=== PATIENT | male | born 2000 | race Caucasian/White ===

== ENCOUNTER 2024-04-19 09:47 | Day surgery (SDC) | payer OTHER, SELFPAY ==
[2024-04-14 15:09] VITALS: BMI 20.7
[2024-04-19 11:03] VITALS: BP 156/89; PULSE 56; RESP 18; TEMP 36.7; O2SAT 99; BMI 20.7
[2024-04-19] MEDS: ACETAMINOPHEN 325 MG TABLET 975 MG PO (11:21)
--- NOTE | 2024-04-19 13:13 | PM.PREOP ---
Pre-operative Note Interval Note History & Physical reviewed/Exam performed by Physician: Yes Changes to H&P: No H&P completed within 30 days and has changed as indicated here:: 23-year-old male presents with a perianal abscess. When previously examined there was some concerning had a pilonidal cyst but this is not the case it has actually a perianal abscess. We will plan for exam under anesthesia today with possible incision and drainage and possible fistulotomy. Overview of the procedure to risks benefits and alternatives reviewed. Questions have been answered he is in agreement with this plan.
--- NOTE | 2024-04-19 13:35 | SUR.OPER ---
Lithotomy on padded OR bed, head on pillow, arms secured on padded arm boards at <90 degrees abduction. Legs secured in padded yellow fins stirrups.
[2024-04-19] MEDS: BUPIVACAINE 0.25% (PF) VIAL 30 ML INJ (13:42)
[2024-04-19 13:55] VITALS: BP 105/59; PULSE 70; RESP 12; TEMP 36.8; O2SAT 95
[2024-04-19 14:00] VITALS: BP 104/60; PULSE 71; RESP 12; TEMP 36.8; O2SAT 95
[2024-04-19 14:05] VITALS: BP 107/63; PULSE 76; RESP 12; TEMP 36.8; O2SAT 95
[2024-04-19 14:12] VITALS: BP 108/63; PULSE 75; RESP 15; TEMP 36.9; O2SAT 96
--- NOTE | 2024-04-21 19:22 | PM.OP.1 ---
Operative Date/Time/Diagnoses Date of procedure: 04/19/24 Time of procedure: 19:22 Pre-op diagnosis: perianal abscess Post-op diagnosis: other (superficial perianal fistula) Procedure & Clinicians Procedure: Rectal examination under anesthesia Incision and drainage of perianal abscess Fistulotomy Same procedure as scheduled: Yes Indications: 23M with rectal peacock and abscess Surgeon: Clayton Harmon Click Yes if Unassisted: Yes Anesthesia Type: General Operative Notes Findings: perianal abscess in posterior midline with superficial fistula Specimen(s): none sent Estimated Blood Loss (mL): 5 Procedure in detail: Patient was brought to the operating room placed supine on the table. Bilateral lower extremity compression devices were applied. General anesthesia was induced he was intubated with a LMA. He was then placed into lithotomy position appropriately padded prepped and draped in usual fashion. Time-out was performed. General inspection of the rectum was made there was a 1 -2 cm perianal abscess in the posterior midline. Internal examination of the rectum was notable for a superficial fistulous tract also within the posterior midline. This was identified using a lacrimal probe. Given the superficial nature of the fistula after we made an incision and drainage of the anal abscess the fistula tract was opened using electrocautery and curetted. There were no other abnormalities. The sponge and instrument count was correct x2. He tolerated the procedure well was extubated and transferred to recovery in stable condition. Complications: none Post-operative Condition: stable Disposition: same day surgery
== END 2024-04-19 14:40 | disposition home or self-care (01) ==
PROVIDERS: Referring Provider Surgery; Visit Provider Surgery
PROC: (CPT 45990; principal; 2024-04-19 11:45)
PROC: (CPT 46050; 2024-04-19 11:45)
DX: K61.0 Anal abscess (principal)
CPT/HCPCS: 46050; J1100; J1885; J2250; J2405; J2704; J3010